=== PATIENT | female | born 1960 ===

== ENCOUNTER 2020-07-09 06:00 | Day surgery (SDC) | payer OTHER ==
[~2020-07-09 06:00] MED LIST: CLONAZEPAM1 MG PO; COZAAR100 MG PO; CYMBALTA60 MG PO; GABAPENTIN600 MG PO; LEVO-T75 MCG PO; NABUMETONE750 MG PO; NORVASC5 MG PO; PLAVIX75 MG PO; PROAIR HFA8.5 GM IH; ZIPSOR25 MG PO
[2020-07-09] MEDS ORDERED: DUI500 PO (09:13)
[2020-07-09] MEDS ORDERED: ULTRACET PO (09:13)
== END 2020-07-09 12:45 | disposition home or self-care (01) ==
LOC: CIR.AMB 06:00
PROVIDERS: ATTEND Orthopaedic Surgery Sports Medicine
DX: M23.221 Derangement of posterior horn of medial meniscus due to old tear or injury, right knee (principal); Z20.828 Contact with and (suspected) exposure to other viral communicable diseases; M65.861 Other synovitis and tenosynovitis, right lower leg; M10.061 Idiopathic gout, right knee